=== PATIENT | female | born 1975 | race Caucasian/White ===

== ENCOUNTER 2017-03-14 19:47 | Emergency (ER) | payer MEDICAID ==
[~2017-03-14] VITALS: Ht 167.6 cm; Wt 80.0 kg
[~2017-03-14 19:47] MED LIST: PROC2.5C RECTAL; VALA500T PO
[2017-03-14 19:48] VITALS: BP 143/90; PULSE 97; RESP 16; TEMP 98.6; O2SAT 100
--- NOTE | 2017-03-14 21:42 | PD ---
HPI Chief Complaint: Complaint Time Seen by Provider: 21:38 Travel History International Travel<30 days: No Contact w/Intl Traveler<30days: No Traveled to known affect area: No History of Present Illness HPI 41-year-old black female presents from her department for evaluation of her retained tampon. She states that she has finished her period 2 days ago. She states that she does not recall taking out her last tampon. She states that when she had intercourse yesterday her our nurse felt that he had noted something in her vagina. She was not able to retrieve anything from her vagina. She denies any fever chills. No nausea vomiting. No abdominal pain or pelvic pain. No abnormal discharge. Symptoms are mild. No alleviating factors. Exacerbated by intercourse PFSH Past Medical History Medical History: Denies Significant Hx ?: Not Past Surgical History Surgical History: No Previous Surgery Social History Alcohol Use: No Tobacco Use: No Substance Use: No Allergies-Medications (Allergen,Severity, Reaction): Coded Allergies: No Known Allergies (Unverified , 05/06/16) Reported Meds & Prescriptions Reported Meds & Active Scripts Active Proctosol Hc (Hydrocortisone Rectal) 2.5% Cream 1 Applic RECTAL BID PRN Valacyclovir (Valacyclovir HCl) 500 Mg Tab 500 Mg PO BID Review of Systems General / Constitutional: No: Fever Eyes: No: Visual changes HENT: No: Headaches Cardiovascular: No: Chest Pain or Discomfort Respiratory: No: Shortness of Breath Gastrointestinal: No: Abdominal Pain Genitourinary: No: Frequency, Dysuria, Pelvic Pain, Discharge, Dysmenorrhea, Menorrhagia, Metorrhagia, Vaginal Bleeding Musculoskeletal: No: Pain Skin: No Rash Neurologic: No: Weakness Psychiatric: No: Depression Endocrine: No: Polydipsia Hematologic/Lymphatic: No: Easy Bruising Physical Exam Narrative GENERAL: Well-developed, well-nourished in no acute distress. Nontoxic appearing. Patient's examined in the presence of the nurse. HEAD: Normocephalic, atraumatic. EYES: Pupils equal round and reactive. Extraocular motions intact. No scleral icterus. No injection or drainage. ENT: TMs clear without erythema. The external auditory canals clear. Nose: clear . Posterior pharynx is pink and moist. No tonsillar edema or exudate. Uvula midline. Airway patent. NECK: Trachea midline.Supple, nontender, moves head freely. No central bony tenderness or spasm. CARDIOVASCULAR: Regular rate and rhythm without murmurs, gallops, or rubs. RESPIRATORY: Clear to auscultation. Breath sounds equal bilaterally. No wheezes , rales, or rhonchi. GASTROINTESTINAL: Abdomen soft, non-tender, nondistended. No hepato-splenomegaly , or palpable masses. No guarding. EXTREMITIES: No clubbing, cyanosis, or edema. No joint tenderness, effusion, or edema noted. BACK: Nontender without deformity or crepitance. No flank tenderness. Pelvic: Normal external genitalia. Speculum exam reveals no foreign body. Normal cervix. No abnormal lesions. No discharge. Bimanual exam reveals no foreign body. No adnexal tenderness or mass. No cervical motion tenderness. Normal uterus. Data Data Last Documented VS Vital Signs Date Time Temp Pulse Resp B/P (MAP) Pulse Ox O2 Delivery O2 Flow Rate FiO2 03/14/17 19:48 98.6 97 16 143/90 (107) 100 Room Air Orders Orders Ed Discharge Order (03/14/17 21:56) MDM Medical Decision Making Medical Screen Exam Complete: Yes Emergency Medical Condition: Yes Medical Record Reviewed: Yes Differential Diagnosis Differential diagnoses: Retained tampon, vaginitis, cystocele, uterine prolapse Narrative Course Patient's pelvic exam performed. No retained foreign body/tampon noted. This is confirmed by the nurse. Patient's exam was performed in her presence. The patient states that she still has the sensation that there is something in there she has been advised to follow-up with her route delivery driver for a second opinion. Diagnosis Primary Impression: vaginal foreign body sensation Patient Instructions: General Instructions Additional Instructions: Rest. Follow-up with your route delivery driver next week for a second opinion. Med/Other Pt SpecificInfo: No Meds Exist/No RX given Disposition: DISCHARGE HOME Condition: Stable Sriram Golden Mar 14, 2017 21:42
== END 2017-03-14 22:09 | disposition home or self-care (01) ==
LOC: NEPD 19:47
DX: N94.89 Other specified conditions associated with female genital organs and menstrual cycle (principal)
CPT/HCPCS: 99284